=== PATIENT | female | born 1980 | race Caucasian/White ===

== ENCOUNTER 2020-06-16 09:19 | Emergency (ER) | payer OTHER ==
[~2020-06-16] VITALS: Ht 162.6 cm; Wt 68.0 kg
[~2020-06-16 09:19] MED LIST: ACET325 PO; ACET500; ALBU90OI INH; AMOX500 PO; ASPI325 PO; ASPI325B; BACPOLTO30 TP; CEPH500 PO; CIPR500 PO; CRUTCH4 USE; CYCL10 PO; Cleocin HCl150 MG PO; HYDACE5 PO; MEDR150I; META800 PO; Mobic7.5 MG PO; NAPR500 PO; NO HOME MEDS; OXYACE5T PO; PENVK500 PO; PROM25 PO; RXAMOX500 PO; RXTRAM50 PO; SERT50 PO; SYMBIAX PO; TRAM50 PO; Ultram50 MG PO
== END 2020-06-16 10:30 | disposition home or self-care (01) ==
LOC: ER 09:19
DX: S93.601A Unspecified sprain of right foot, initial encounter (principal); S90.32XA Contusion of left foot, initial encounter; F17.210 Nicotine dependence, cigarettes, uncomplicated; Z88.2 Allergy status to sulfonamides; Z91.018 Allergy to other foods; Z79.899 Other long term (current) drug therapy; V43.53XA Car driver injured in collision with pick-up truck in traffic accident, initial encounter; Y92.410 Unspecified street and highway as the place of occurrence of the external cause
CPT/HCPCS: 73562-RT; 73630; 99283-25; A9270-GY

== ENCOUNTER 2021-01-09 21:31 | Emergency (ER) | payer OTHER | END 2021-01-09 23:49 | disposition left against medical advice (07) | LOC: ER 21:31 | DX: Z53.21 Procedure and treatment not carried out due to patient leaving prior to being seen by health care provider (principal) ==